=== PATIENT | female | born 1985 | race Caucasian/White ===

== ENCOUNTER → 2023-12-14 16:59 | Outpatient (REF) | payer BC, SELFPAY | LOC: PNTC 16:59 | PROVIDERS: ATTENDING PHYSICIAN Obstetrics & Gynecology | DX: O35.5XX0 Maternal care for (suspected) damage to fetus by drugs, not applicable or unspecified (principal); O09.529 Supervision of elderly multigravida, unspecified trimester; Z85.850 Personal history of malignant neoplasm of thyroid; O43.219 Placenta accreta, unspecified trimester | CPT/HCPCS: 76816; 93976 ==

== ENCOUNTER → 2024-01-11 16:27 | Outpatient (REF) | payer BC, SELFPAY | LOC: PNTC 16:27 | PROVIDERS: ATTENDING PHYSICIAN Obstetrics & Gynecology | DX: O35.5XX0 Maternal care for (suspected) damage to fetus by drugs, not applicable or unspecified (principal); Z85.850 Personal history of malignant neoplasm of thyroid | CPT/HCPCS: 76816; 93976 ==

== ENCOUNTER → 2024-02-16 16:21 | Outpatient (REF) | payer BC, SELFPAY | LOC: PNTC 16:21 | PROVIDERS: ATTENDING PHYSICIAN Obstetrics & Gynecology | DX: O35.5XX0 Maternal care for (suspected) damage to fetus by drugs, not applicable or unspecified (principal); Z85.850 Personal history of malignant neoplasm of thyroid; O43.219 Placenta accreta, unspecified trimester | CPT/HCPCS: 59025; 76815; 93976 ==

== ENCOUNTER → 2024-02-23 16:19 | Outpatient (REF) | payer BC, SELFPAY | LOC: PNTC 16:19 | PROVIDERS: ATTENDING PHYSICIAN Obstetrics & Gynecology | DX: O35.5XX0 Maternal care for (suspected) damage to fetus by drugs, not applicable or unspecified (principal); Z85.850 Personal history of malignant neoplasm of thyroid | CPT/HCPCS: 59025; 76815 ==

== ENCOUNTER → 2024-03-01 16:24 | Outpatient (REF) | payer BC, SELFPAY | LOC: PNTC 16:24 | PROVIDERS: ATTENDING PHYSICIAN Obstetrics & Gynecology | DX: O35.5XX0 Maternal care for (suspected) damage to fetus by drugs, not applicable or unspecified (principal); Z85.850 Personal history of malignant neoplasm of thyroid | CPT/HCPCS: 59025; 76815 ==

== ENCOUNTER 2024-03-04 09:14 | Observation (INO) | payer BC, SELFPAY ==
[2024-03-04 09:27] VITALS: BP 114/70; BMI 32.8
[2024-03-04 10:02] LABS: % Basophils 0.1 % (0-2); % Eosinophils 0.6 % (0-6); % Immature Granulocytes 0.8 % (0-0.5); % Lymphocytes 21.5 % (20.5-51.1); % Monocytes 8.4 % (1.7-9.3); % Neutrophils 68.6 % (42.2-75.2); Absolute Eosinophils 0.1 10^3/uL (0-0.7); Absolute Immature Granulocytes 0.1 10^3/uL (0-0.05); Absolute Lymphocytes 1.7 10^3/uL (1.2-3.4); Absolute Monocytes 0.7 10^3/uL (0.1-0.6); Absolute Neutrophils 5.3 10^3/uL (1.4-6.5); Hematocrit 31.6 % (37.0-47.0); Hemoglobin 11.2 g/dL (12.0-16.0); Mean Corp Hgb Conc. 35.4 g/dL (33.0-37.0); Mean Corpuscular Hgb 34.1 pg (27.0-31.0); Mean Corpuscular Volume 96.3 fL (81.0-99.0); Mean Platelet Volume 9.4 fL (7.4-10.4); Nucleated Red Blood Cells % 0 %; Platelet Count 213 10^3/uL (130-400); Red Blood Cell Count 3.28 10^6/uL (4.20-5.40); Red Cell Dist. Width 12.7 % (11.5-14.5); White Blood Cell Count 7.7 10^3/uL (4.8-10.8)
[2024-03-04 10:16] LABS: ALT (SGPT) 20 U/L (0-35); AST (SGOT) 22 U/L (14-36); Albumin 3.2 g/dl (3.5-5.0); Alkaline Phosphatase 99 U/L (38-126); Blood Urea Nitrogen 8 mg/dl (7-17); Calcium 9.4 mg/dl (8.4-10.2); Carbon Dioxide 24 mmol/L (22-30); Chloride 107 mmol/L (98-107); Estimated Creatinine Clearance > 125 ml/min; Glucose 82 mg/dl (70-99); Potassium 3.7 mmol/L (3.5-5.1); Sodium 133 mmol/L (135-145); Total Bilirubin 0.3 mg/dl (0.2-1.3); Total Protein 5.7 g/dl (6.3-8.2); eGFR > 60.00
[2024-03-04 10:45] LABS: Protein/creatinine Ratio 0.6; Urine Protein 14 mg/dl
== END 2024-03-04 10:42 | disposition home or self-care (01) ==
LOC: LDRP 09:14
PROVIDERS: ADMITTING PHYSICIAN Obstetrics & Gynecology
DX: R22.42 Localized swelling, mass and lump, left lower limb (principal); R03.0 Elevated blood-pressure reading, without diagnosis of hypertension; O09.523 Supervision of elderly multigravida, third trimester; Z3A.35 35 weeks gestation of pregnancy; Z85.850 Personal history of malignant neoplasm of thyroid; J45.990 Exercise induced bronchospasm
CPT/HCPCS: 59899; 80053; 82570; 84156; 85025; G0378

== ENCOUNTER → 2024-03-08 16:20 | Outpatient (REF) | payer BC, SELFPAY | LOC: PNTC 16:20 | PROVIDERS: ATTENDING PHYSICIAN Obstetrics & Gynecology | DX: O35.5XX0 Maternal care for (suspected) damage to fetus by drugs, not applicable or unspecified (principal); O9A.119 Malignant neoplasm complicating pregnancy, unspecified trimester | CPT/HCPCS: 59025; 76816 ==

== ENCOUNTER → 2024-03-15 16:26 | Outpatient (REF) | payer BC, SELFPAY | LOC: PNTC 16:26 | PROVIDERS: ATTENDING PHYSICIAN Obstetrics & Gynecology | DX: Z85.850 Personal history of malignant neoplasm of thyroid (principal); O35.5XX0 Maternal care for (suspected) damage to fetus by drugs, not applicable or unspecified | CPT/HCPCS: 59025; 76815 ==

== ENCOUNTER → 2024-03-22 16:14 | Outpatient (REF) | payer BC, SELFPAY | LOC: PNTC 16:14 | PROVIDERS: ATTENDING PHYSICIAN Obstetrics & Gynecology | DX: Z85.850 Personal history of malignant neoplasm of thyroid (principal); O35.5XX0 Maternal care for (suspected) damage to fetus by drugs, not applicable or unspecified | CPT/HCPCS: 59025; 76815 ==

== ENCOUNTER → 2024-03-29 16:28 | Outpatient (REF) | payer BC, SELFPAY | LOC: PNTC 16:28 | PROVIDERS: ATTENDING PHYSICIAN Obstetrics & Gynecology | DX: Z85.850 Personal history of malignant neoplasm of thyroid (principal); O35.5XX0 Maternal care for (suspected) damage to fetus by drugs, not applicable or unspecified | CPT/HCPCS: 59025; 76815 ==

== ENCOUNTER 2024-03-31 06:35 | Inpatient (IN) | payer BC, SELFPAY ==
[2024-03-31 06:46] VITALS: BP 120/71; BMI 32.1
[2024-03-31] MEDS: LR 1000 IV (07:15)
[2024-03-31 07:33] LABS: Hematocrit 33.7 % (37.0-47.0); Hemoglobin 11.8 g/dL (12.0-16.0); Mean Corpuscular Hgb 34.5 pg (27.0-31.0); Mean Corpuscular Volume 98.5 fL (81.0-99.0); Mean Platelet Volume 9.8 fL (7.4-10.4); Platelet Count 200 10^3/uL (130-400); Red Blood Cell Count 3.42 10^6/uL (4.20-5.40)
[2024-03-31] MEDS: ANCEF 10 IV (08:09)
[2024-03-31] MEDS: TYLENOL 1000 MG PO (08:09)
[2024-03-31] MEDS: BICITRA 30 ML PO (08:09)
[2024-03-31 09:52] LABS: Cord ABG Comment CORD BLOOD
[2024-03-31 09:58] LABS: B.E. Cord ABG -1.7 mMOL/L; HCO3 Cord ABG 22.1 mmol/L; O2 Saturation % Cord ABG 61.1 %; PCO2 Cord ABG 34 mmHg; PO2 Cord ABG 28 mmHg; pH Cord ABG 7.42
[2024-03-31 10:05] LABS: HCO3 Cord ABG 24.4 mmol/L; PCO2 Cord ABG 57 mmHg; PO2 Cord ABG 18 mmHg; pH Cord ABG 7.24
[2024-03-31] MEDS: TORADOL 15 MG IV ×3 (11:09→23:14)
[2024-03-31] MEDS: PITOCIN 30 UNITS/NSS 500 ML IV (11:10)
[2024-03-31] MEDS: ZOFRAN 4 MG IV (18:14)
[2024-03-31] MEDS: TOPROL XL PO (22:01)
[2024-03-31] MEDS: THERAGRAN 1 TABLET PO (22:02)
[2024-03-31] MEDS: WELLBUTRIN XL (24 hour extended release) 300 MG PO (22:02)
[2024-03-31] MEDS: SYNTHROID 88 MCG PO (22:03)
[2024-04-01] MEDS: TORADOL 15 MG IV ×3 (04:42→18:04)
[2024-04-01 04:47] LABS: Hematocrit 28.7 % (37.0-47.0); Hemoglobin 10.4 g/dL (12.0-16.0); Mean Corp Hgb Conc. 36.2 g/dL (33.0-37.0); Mean Corpuscular Hgb 34.6 pg (27.0-31.0); Mean Corpuscular Volume 95.3 fL (81.0-99.0); Mean Platelet Volume 9.4 fL (7.4-10.4); Platelet Count 194 10^3/uL (130-400); Red Blood Cell Count 3.01 10^6/uL (4.20-5.40); Red Cell Dist. Width 12.8 % (11.5-14.5); White Blood Cell Count 11.8 10^3/uL (4.8-10.8)
--- NOTE | 2024-04-01 09:07 | W.PN.ANS.POP ---
Anesthesia Post Operative
- Anesthesia Post Op Note
Vital Signs Stable-See Nursing Note: Yes
Airway Patent: Yes
Adequate Pain Control: Yes
Change in Mental Status: No
Current Postoperative Nausea & Vomiting: No
Anesthesia Complications: No
General Anesthetic Recall: No
Unplanned Admission: No
Post Op Hydration Adequate: Yes
[2024-04-01] MEDS: MYLICON 80 MG PO (11:40)
[2024-04-01] MEDS: PERCOCET 5/325 1 TABLET PO ×3 (14:15→23:36)
[2024-04-01 14:47] LABS: Syphilis/T. pallidum Ab Reflex Negative (Negative)
[2024-04-01] MEDS: HYPERRHO S-D 1500 UNIT IM (14:47)
[2024-04-01] MEDS: WELLBUTRIN XL (24 hour extended release) PO (16:57)
[2024-04-01] MEDS: SYNTHROID 88 MCG PO (22:00)
[2024-04-01] MEDS: THERAGRAN 1 TABLET PO (22:00)
[2024-04-01] MEDS: WELLBUTRIN XL (24 hour extended release) 300 MG PO (22:00)
[2024-04-01] MEDS: TOPROL XL PO (22:05)
[2024-04-02] MEDS: MOTRIN 600 MG PO ×4 (00:20→19:29)
[2024-04-02] MEDS: PERCOCET 5/325 1 TABLET PO ×2 (03:59→23:30)
[2024-04-02] MEDS: FEOSOL 325 MG PO ×2 (08:45→19:29)
[2024-04-02] MEDS: MYLICON 80 MG PO (08:45)
[2024-04-02] MEDS: SENOKOT-S 1 TABLET PO (08:45)
[2024-04-02] MEDS: TYLENOL 650 MG PO ×2 (08:49→19:29)
[2024-04-02] MEDS: SYNTHROID 88 MCG PO (22:31)
[2024-04-02] MEDS: WELLBUTRIN XL (24 hour extended release) 300 MG PO (22:31)
[2024-04-02] MEDS: THERAGRAN 1 TABLET PO (22:31)
[2024-04-02] MEDS: TOPROL XL 25 MG PO (22:37)
[2024-04-03] MEDS: MOTRIN 600 MG PO ×2 (01:29→08:45)
[2024-04-03] MEDS: PERCOCET 5/325 1 TABLET PO (05:39)
[2024-04-03] MEDS: MYLICON 80 MG PO (07:56)
[2024-04-03] MEDS: SENOKOT-S 1 TABLET PO (07:56)
[2024-04-03] MEDS: FEOSOL 325 MG PO (07:57)
--- NOTE | 2024-04-03 10:10 | W.DS.TRANS ---
DC Summary - Book Author
-
Discharge Instructions:
Discharge Diagnosis/Procedures section
Instructions:
Stand-Alone Forms: LDRP Delivery
Changes to Home Medications: No
Discharge Medications:
DC Medications w/original date entered in [facility]
bupropion HCl 300 mg 24 hr tablet, extended release 300 mg PO DAILY Depression 02/05/22
levothyroxine 75 mcg tablet 88 mcg PO HS Thyroid 02/05/22
metoprolol succinate 25 mg tablet,extended release 24 hr 25 mg PO HS Blood pressure 02/05/22
multivitamin with folic acid 400 mcg tablet (Tab-A-Stan) 1 tab PO HS Supplement 02/05/22
acetaminophen 325 mg tablet 650 mg (2 x 325 mg) PO Q4HPRN PRN mild pain #0 tabs 04/02/24
ferrous sulfate 325 mg (65 mg iron) tablet (FeroSul) 325 mg PO BID #0 tabs 04/02/24
ibuprofen 600 mg tablet 600 mg PO Q6HPRN PRN cramps #30 tabs 04/02/24
oxycodone-acetaminophen 5 mg-325 mg tablet 1 tab PO Q4HPRN PRN moderate pain #12 tabs 04/02/24
sennosides 8.6 mg-docusate sodium 50 mg tablet (Stool Softener-Stimulant Laxative) 1 tab PO DAILYPRN PRN constipation #0 tabs 04/02/24
simethicone 80 mg chewable tablet 80 mg PO TIDPRN PRN flatulence #0 tabs 04/02/24
Home Medication Changes
Pending Results: No
Total time spent discharging patient (in min): 20
== END 2024-04-03 11:01 | disposition home or self-care (01) | DRG 787 ==
LOC: LDRP 06:35
PROVIDERS: ADMITTING PHYSICIAN Obstetrics & Gynecology
PROC: 6A550ZT Pheresis of Cord Blood Stem Cells, Single (ICD-10-PCS; 2024-03-31)
PROC: 10D00Z1 Extraction of Products of Conception, Low, Open Approach (ICD-10-PCS; 2024-03-31)
PROC: 3E0234Z Introduction of Serum, Toxoid and Vaccine into Muscle, Percutaneous Approach (ICD-10-PCS; 2024-04-01)
DX: O34.211 Maternal care for low transverse scar from previous cesarean delivery (principal); D62 Acute posthemorrhagic anemia; O90.81 Anemia of the puerperium; Z3A.39 39 weeks gestation of pregnancy; Z37.0 Single live birth; J45.990 Exercise induced bronchospasm; O99.344 Other mental disorders complicating childbirth; F32.A Depression, unspecified; F41.9 Anxiety disorder, unspecified; M72.2 Plantar fascial fibromatosis; D25.2 Subserosal leiomyoma of uterus; O34.13 Maternal care for benign tumor of corpus uteri, third trimester; O99.824 Streptococcus B carrier state complicating childbirth; N85.8 Other specified noninflammatory disorders of uterus; O66.5 Attempted application of vacuum extractor and forceps; Z53.09 Procedure and treatment not carried out because of other contraindication; Z90.49 Acquired absence of other specified parts of digestive tract; Z85.850 Personal history of malignant neoplasm of thyroid
CPT/HCPCS: 82803; 85027; 85461; 86780; 86850; 86900; 86901; J2790

== ENCOUNTER → 2024-05-24 09:45 | Outpatient (REF) | payer BC, SELFPAY | LOC: HWRAD 09:45 | PROVIDERS: ATTENDING PHYSICIAN Internal Medicine Endocrinology, Diabetes & Metabolism; FAMILY PHYSICIAN Internal Medicine | DX: C73 Malignant neoplasm of thyroid gland (principal) | CPT/HCPCS: 76536 ==

== ENCOUNTER → 2025-05-18 15:24 | Outpatient (REF) | payer BC, SELFPAY | LOC: HWRAD 15:24 | PROVIDERS: ATTENDING PHYSICIAN Internal Medicine Endocrinology, Diabetes & Metabolism; FAMILY PHYSICIAN Internal Medicine | DX: Z98.890 Other specified postprocedural states (principal) | CPT/HCPCS: 76536 ==